=== PATIENT | female | born 1965 | race Hispanic/Latino ===

== ENCOUNTER → 2018-04-16 | Outpatient (CLI) | payer SELFPAY ==
[~2018-04-16] MED LIST: IOHEXOL 350 MG/ML 100ML INFUS..BTL IV ONE
[2018-04-16 15:41] LABS: CREATININE 0.7 mg/dL (0.5-1.5)
== END | disposition home or self-care (01) ==
LOC: RAH 13:39
PROVIDERS: ATTEND Family Medicine
DX: R06.02 Shortness of breath (principal); M51.34 Other intervertebral disc degeneration, thoracic region
CPT/HCPCS: 36415; 71275; 82565; 84520; Q9967